=== PATIENT | female | born 1980 | race Caucasian/White ===

== ENCOUNTER 2018-03-05 08:18 | Emergency (ER) | payer OTHER ==
[2018-03-05 08:30] VITALS: BP 106/67
--- NOTE | 2018-03-05 08:45 | UC ---
Throat Pain/Nasal Carlito HPI - HPI Summary HPI Summary: 37 year old female with no significant pmhx here for left eye discomfort for 3 days. Reports redness and itchiness. No purulent discharge. No change in vision. She also reports throat pain and discomfort for two days. No fever or chills. - History of Current Complaint Chief Complaint: UCEye Stated Complaint: EYE PAIN Time Seen by Provider: 03/05/18 08:24 Hx Obtained From: Patient Hx Last Menstrual Period: 2 weeks ago Onset/Duration: Gradual Onset Severity: Mild Pain Intensity: 0 Associated Signs & Symptoms: Negative: Dysphagia, FB Sensation, Drooling, Wheezing, Hoarseness, Sinus Discomfort, Nasal Discharge, Fever, Vomiting, Rash - Epiglottits Risk Factors Epiglottis Risk Factors: Negative - Allergies/Home Medications Allergies/Adverse Reactions: Allergies Allergy/AdvReac Type Severity Reaction Status Date / Time No Known Allergies Allergy Verified 03/29/14 06:51 PMH/Surg Hx/FS Hx/Imm Hx Previously Healthy: Yes - Surgical History Surgical History: None - Social History Alcohol Use: Occasionally Substance Use Type: None Smoking Status (MU): Never Smoked Tobacco Review of Systems All Other Systems Reviewed And Are Negative: Yes Eyes: Positive: Eye Redness ENT: Positive: Sore Throat Is Patient Immunocompromised?: No Physical Exam Triage Information Reviewed: Yes Appearance: Well-Appearing Vital Signs: Initial Vital Signs Temp 37.4 C 03/05/18 08:23 Pulse 74 03/05/18 08:23 Resp 18 03/05/18 08:23 BP 106/67 03/05/18 08:23 Pulse Ox 97 03/05/18 08:23 Eye Exam: Normal Eyes: Positive: Other: - EOMI left eye redness, no purulent discharge, no pain with EOMI ENT: Positive: Pharyngeal erythema, Tonsillar exudate, Uvula midline. Negative : Trismus, Muffled voice, Hoarse voice, Dental tenderness, Sinus tenderness Respiratory Exam: Normal Cardiovascular Exam: Normal Abdominal Exam: Normal Neurological Exam: Normal Skin Exam: Normal Throat Pain/Nasal Course/Dx - Course Course Of Treatment: Symptoms c/w viral pharyngitis and conjuctivitis. Will do rapid strep. Symptomatic treatment - Differential Dx/Diagnosis Differential Diagnosis/HQI/PQRI: Pharyngitis, URI Provider Diagnosis: Viral conjunctivitis, left eye, Pharyngitis Discharge - Sign-Out/Discharge Documenting (check all that apply): Patient Departure All imaging exams completed and their final reports reviewed: Yes - Discharge Plan Condition: Good Disposition: HOME Patient Education Materials: Pharyngitis (ED) Forms: *Work Release Referrals: Margarita Porras MD [Primary Care Provider] - - Billing Disposition and Condition Condition: GOOD Disposition: Home
[2018-03-05] MEDS ORDERED: Dexamethasone TAB* 4 MG PO ONE (08:50)
== END 2018-03-05 09:20 | disposition home or self-care (01) ==
LOC: UCEAST 08:18
DX: B30.9 Viral conjunctivitis, unspecified (principal); J02.9 Acute pharyngitis, unspecified
CPT/HCPCS: 87651; 99202; G0463; J8540